=== PATIENT | female | born 1965 | race Caucasian/White ===

== ENCOUNTER 2020-04-29 17:18 | Emergency (ER) | payer MEDICAID, SELFPAY ==
[~2020-04-29] VITALS: Ht 172.7 cm; Wt 245.4 kg
[2020-04-29 18:10] VITALS: BP_SYST 135
[2020-04-29 20:57] LABS: BASOPHILS % (AUTO) 0.4 % (0.0-2.0); HEMATOCRIT 35.5 % (36-48); HEMOGLOBIN 11.3 g/dL (12.0-16.0); LYMPHOCYTES # (AUTO) 0.9 K/uL (1.0-5.5); LYMPHOCYTES % (AUTO) 8.1 % (20.5-51.5); MEAN CORPUSCULAR HEMOGLOBIN 22 pg (27-31); MEAN CORPUSCULAR HGB CONC 32 % (32-36); MEAN CORPUSCULAR VOLUME 68 fL (79.0-98.0); MONOCYTES % (AUTO) 8.9 % (1.7-9.3); NEUTROPHILS # (AUTO) 9.3 K/uL (1.8-7.7); NEUTROPHILS % (AUTO) 82.6 % (40.0-70.0); PLATELET COUNT (AUTO) 270 K/uL (130-430); RED BLOOD CELL COUNT(AUTO) 5.21 MIL/uL (4.2-6.2); RED CELL DISTRIBUTION WIDTH 20.7 % (9.0-15.0); WHITE BLOOD COUNT (AUTO) 11.2 K/uL (4.8-10.8)
[2020-04-29] MEDS: IBUPROFEN 600 MG TABLET PO ONE (21:05)
[2020-04-29 21:07] LABS: CALCIUM 8.7 mg/dL (8.4-11.0); CREATININE 1.14 mg/dL (0.55-1.30); POTASSIUM 3.3 mmol/L (3.5-5.1)
[2020-04-29 21:24] LABS: ALBUMIN 2.6 g/dL (3.4-4.8)
[2020-04-29 21:38] VITALS: BP_SYST 130
== END 2020-04-29 21:38 | disposition home or self-care (01) ==
LOC: SED 17:18
DX: R50.9 Fever, unspecified (principal); M79.18 Myalgia, other site; I10 Essential (primary) hypertension; E11.9 Type 2 diabetes mellitus without complications; J45.909 Unspecified asthma, uncomplicated; Z20.828 Contact with and (suspected) exposure to other viral communicable diseases
CPT/HCPCS: 36415; 71045; 80053; 83605; 85025; 87040; 87186; 93005; 99285; C9803; U0003

== ENCOUNTER 2020-07-15 14:11 | Emergency (ER) | payer MEDICAID, SELFPAY ==
[~2020-07-15] VITALS: Ht 172.7 cm; Wt 240.4 kg
[2020-07-15 14:30] VITALS: BP_SYST 151
[2020-07-15 16:33] LABS: BASOPHILS # (AUTO) 0.1 K/uL (0.0-0.2); BASOPHILS % (AUTO) 0.6 % (0.0-2.0); EOSINOPHILS # (AUTO) 0.3 K/uL (0.0-0.4); EOSINOPHILS % (AUTO) 3.9 % (0.0-4.0); HEMATOCRIT 33.3 % (36-48); HEMOGLOBIN 10.3 g/dL (12.0-16.0); LYMPHOCYTES # (AUTO) 1.4 K/uL (1.0-5.5); MEAN CORPUSCULAR HEMOGLOBIN 22 pg (27-31); MEAN CORPUSCULAR HGB CONC 31 % (32-36); MEAN CORPUSCULAR VOLUME 71 fL (79.0-98.0); MONOCYTES # (AUTO) 0.6 K/uL (0.0-1.0); MONOCYTES % (AUTO) 7.3 % (1.7-9.3); NEUTROPHILS # (AUTO) 6.3 K/uL (1.8-7.7); NEUTROPHILS % (AUTO) 72.2 % (40.0-70.0); PLATELET COUNT (AUTO) 379 K/uL (130-430); RED CELL DISTRIBUTION WIDTH 18.3 % (9.0-15.0); WHITE BLOOD COUNT (AUTO) 8.8 K/uL (4.8-10.8)
[2020-07-15 16:50] LABS: CALCIUM 8.4 mg/dL (8.4-11.0); CREATININE 0.75 mg/dL (0.55-1.30); POTASSIUM 3.9 mmol/L (3.5-5.1)
[2020-07-15 16:53] LABS: PROTHROMBIN TIME 10.6 SECS (9.5-12.5)
[2020-07-15 16:56] LABS: TOTAL BILIRUBIN 0.3 mg/dL (0.0-1.0)
[2020-07-15 18:13] VITALS: BP_SYST 151
== END 2020-07-15 18:15 | disposition home or self-care (01) ==
LOC: SED 14:11
DX: G56.22 Lesion of ulnar nerve, left upper limb (principal); I10 Essential (primary) hypertension; E11.9 Type 2 diabetes mellitus without complications; J45.909 Unspecified asthma, uncomplicated; E66.01 Morbid (severe) obesity due to excess calories
CPT/HCPCS: 36415; 80053; 85025; 85610-TC; 85730-TC; 93971; 99285

== ENCOUNTER 2024-01-24 10:54 | Emergency (ER) | payer MEDICAID ==
[~2024-01-24] VITALS: Ht 170.2 cm; Wt 206.4 kg
[2024-01-24 10:55] VITALS: BP_SYST 147; PULSE 88; RESP 22; TEMP 98; O2SAT 98
[2024-01-24 12:04] LABS: BASOPHILS # (AUTO) 0.1 K/uL (0.0-0.2); BASOPHILS % (AUTO) 0.8 % (0.0-2.0); EOSINOPHILS # (AUTO) 0.2 K/uL (0.0-0.4); EOSINOPHILS % (AUTO) 3.1 % (0.0-4.0); HEMATOCRIT 33.9 % (36-48); HEMOGLOBIN 10.6 g/dL (12.0-16.0); LYMPHOCYTES # (AUTO) 1.5 K/uL (1.0-5.5); LYMPHOCYTES % (AUTO) 19.5 % (20.5-51.5); MEAN CORPUSCULAR HEMOGLOBIN 19 pg (27-31); MEAN CORPUSCULAR HGB CONC 31 % (32-36); MEAN CORPUSCULAR VOLUME 60 fL (79.0-98.0); MONOCYTES # (AUTO) 0.6 K/uL (0.0-1.0); MONOCYTES % (AUTO) 7.5 % (1.7-9.3); NEUTROPHILS # (AUTO) 5.3 K/uL (1.8-7.7); NEUTROPHILS % (AUTO) 69.1 % (40.0-70.0); PLATELET COUNT (AUTO) 369 K/uL (130-430); RED BLOOD CELL COUNT(AUTO) 5.69 MIL/uL (4.2-6.2); RED CELL DISTRIBUTION WIDTH 20.3 % (9.0-15.0); WHITE BLOOD COUNT (AUTO) 7.7 K/uL (4.8-10.8)
[2024-01-24 12:07] LABS: CALCIUM 8.8 mg/dL (8.4-11.0); CREATININE 0.74 mg/dL (0.55-1.30); POTASSIUM 3.9 mmol/L (3.5-5.1)
[2024-01-24 12:15] LABS: BILIRUBIN,URINE NEGATIVE (NEGATIVE); BLOOD, URINE NEGATIVE (NEGATIVE); CLARITY/URINE CLEAR (CLEAR); COLOR,URINE YELLOW (YELLOW); GLUCOSE,URINE NEGATIVE (NEGATIVE); KETONES,URINE NEGATIVE (NEGATIVE); LEUKOCYTE ESTERASE ,URINE NEGATIVE (NEGATIVE); NITRITE, URINE NEGATIVE (NEGATIVE); PH,URINE 7.5 (5.0-8.0); PROTEIN URINE NEGATIVE (NEGATIVE); UROBILINOGEN,URINE 0.2 (0.2-1.0)
[2024-01-24] MEDS ORDERED: TRAM50TA2 PO (13:08)
[2024-01-24] MEDS ORDERED: IBUP-1969 PO (13:08)
[2024-01-24] MEDS: KETOROLAC TROMETHAMINE 60 MG/2 ML VIAL IM ONE (14:24)
[2024-01-24 14:48] VITALS: BP_SYST 147; PULSE 88; RESP 22; TEMP 98; O2SAT 98
[2024-01-24 15:04] LABS: ANISOCYTOSIS 2+; HYPOCHROMASIA 2+; TARGET CELLS FEW
[2024-01-24 15:05] LABS: OVALOCYTES FEW
== END 2024-01-24 14:47 | disposition home or self-care (01) ==
LOC: SED 10:54
DX: R07.89 Other chest pain (principal); M54.50 Low back pain, unspecified; R30.9 Painful micturition, unspecified; J45.909 Unspecified asthma, uncomplicated; E11.9 Type 2 diabetes mellitus without complications; I10 Essential (primary) hypertension; Z79.899 Other long term (current) drug therapy
CPT/HCPCS: 99285; 71045; 80048; 81001; 85025; 84484; 36415; 93005; 96372; 81003; J1885